=== PATIENT | female | born 1955 | race Hispanic/Latino ===

== ENCOUNTER → 2018-07-01 | Outpatient (CLI) | payer OTHER ==
--- NOTE | 2018-07-02 08:28 | Diagnostic Imaging Report ---
#[id number] - MGDXBIL #BILATERAL DIGITAL DIAGNOSTIC MAMMOGRAM WITH CAD: 07/01/2018 Comparison is made to exams dated: 10/05/2017 mammogram, 10/05/2017 ultrasound, 08/23/2017 mammogram, 08/21/2016 mammogram - [facility] and 05/22/2013 mammogram - [facility]. Current study contains 6 films. There are scattered fibroglandular elements in both breasts. Current study was also evaluated with a Computer Aided Detection (CAD) system. There is a benign mass calcification in the right breast that appears stable. Mass previously identified in the left breast not present. There are multiple scattered small lymph nodes present. No significant masses, calcifications, or other findings are seen in either breast. There has been no significant interval change. IMPRESSION: BENIGN There is no mammographic evidence of malignancy. A 1 year screening mammogram is recommended. The patient will be notified by letter of the results. Enrique Lee Jr., D.O. cw/:07/01/2018 15:18:15 Hotel Baggage Handler: Terrie YUAN(R)(M), [facility] letter sent: Compared to Prior B9 Mammogram BI-RADS: 2 Benign
== END ==
LOC: MAMMO 08:12
PROVIDERS: ATTEND Specialist
DX: N64.59 Other signs and symptoms in breast (principal)
CPT/HCPCS: 77066